=== PATIENT | male | born 1960 | race Caucasian/White ===

== ENCOUNTER 2018-02-21 11:07 | Day surgery (SDC) | payer OTHER ==
[2018-02-17 13:07] VITALS: BMI 28.4
[~2018-02-21 11:07] MED LIST: LACTATED RINGERS 1,000 ML IV SCH; LIDOCAINE 1% 20 ML VIAL (10MG/ML) FOR IV START INTRADERMA PRN
[2018-02-21 11:56] VITALS: RESP 16; TEMP 97.7
[2018-02-21] MEDS ORDERED: LIDOCAINE 1% INJ 10MG/ML (20 ML MDV) ONE (12:32)
[2018-02-21] MEDS ORDERED: PROPOFOL 10 MG/ML 20 ML VIAL IV ONE (12:32)
--- NOTE | 2018-02-21 12:55 | P.PCN ---
Date of Procedure: 02/21/18 Procedure(s) Performed: Procedure: Total colonoscopy. Preoperative diagnosis: Screening for neoplasia. Postoperative diagnosis: Mild sigmoid diverticulosis, otherwise, exam to the cecum within normal limits. Preparation: HalfLytely prep. Sedation: Was provided by anesthesia. Brief clinical history: The patient is a 57-year-old male who is scheduled for this evaluation for screening for neoplasia. His last exam was more than 10 years ago.. The patient has no abdominal complaints, bleeding or anemia. Procedure: With the patient on his left lateral decubitus position and after informed consent and adequate sedation, the perianal area was inspected and it did not show any fissures or fistulas. There were no masses felt on digital rectal examination. The Olympus CFQ 160L video colonoscope was then inserted in the rectum in the usual fashion and advanced to the cecum. There was occasional small diverticular orifice seen scattered in the sigmoid but I saw no evidence of acute diverticulitis or strictures. The mucosa appeared healthy. No polyps or tumors were seen. I retroflexed the endoscope in the rectum before the endoscope was withdrawn. The patient tolerated the procedure well. Plan: The patient was reassured. Discussed dietary measures. He will follow up with you as planned and I recommended repeat exam in 10 years.
[2018-02-21 13:25] VITALS: BP 117/73; PULSE 53
== END 2018-02-21 13:40 | disposition home or self-care (01) ==
LOC: ORWHC2ENDO 11:07
DX: Z12.11 Encounter for screening for malignant neoplasm of colon (principal); K57.30 Diverticulosis of large intestine without perforation or abscess without bleeding; I10 Essential (primary) hypertension; E78.5 Hyperlipidemia, unspecified; Z79.899 Other long term (current) drug therapy
CPT/HCPCS: J2001; J2704; G0121

== ENCOUNTER 2019-03-27 08:28 | Emergency (ER) | payer OTHER ==
[2019-03-27] MEDS ORDERED: LIDOCAINE 1% INJ 10MG/ML (20 ML MDV) SQ ONE (09:17)
[2019-03-27] MEDS ORDERED: DIPH,PERTUS(ACELL)TETVAC-LF 0.5 ML VIAL IM ONE (09:18)
--- NOTE | 2019-03-27 10:08 | ED ---
Upper Extremity HPI - General Chief Complaint: Extremity Injury, Upper Stated Complaint: sliver left palm Time Seen by Provider: 03/27/19 09:03 Source: patient, RN notes reviewed, old records reviewed Mode of arrival: ambulatory Limitations: no limitations - History of Present Illness Initial Comments: It is a 58-year-old male who presents when is your permit today with a sliver in the left hand palm. Patient ports he was working with wood yesterday and a piece of wood went to his hand. Try to get it on this one out, but was unable to. Patient states that it seems very painful and he feels of those sliver is deep. He reports full range of motion noted. Patient reports TDAP needs uptdate. MD Complaint: Injury to:: hand - Related Data Home Medications Medication Instructions Recorded Confirmed Simvastatin [Zocor] 20 mg PO Q48H 02/17/18 03/27/19 amLODIPine [Norvasc] 5 mg PO Q48H 02/17/18 03/27/19 Allergies Allergy/AdvReac Type Severity Reaction Status Date / Time No Known Allergies Allergy Verified 03/27/19 09:30 Review of Systems ROS Statement: Those systems with pertinent positive or pertinent negative responses have been documented in the HPI. ROS Other: All systems not noted in ROS Statement are negative. Past Medical History Past Medical History: Hyperlipidemia, Hypertension History of Any Multi-Drug Resistant Organisms: None Reported Additional Past Surgical History / Comment(s): colonscopy Past Anesthesia/Blood Transfusion Reactions: No Reported Reaction Past Psychological History: No Psychological Hx Reported Smoking Status: Never smoker Past Alcohol Use History: None Reported Past Drug Use History: None Reported - Past Family History Father Family Medical History: Cancer General Exam - General Exam Comments Initial Comments: This is a 58 year old male, no distress. Limitations: no limitations General appearance: alert, in no apparent distress Head exam: Present: atraumatic, normocephalic, normal inspection Eye exam: Present: normal appearance, PERRL, EOMI. Absent: scleral icterus, conjunctival injection, periorbital swelling ENT exam: Present: normal exam, mucous membranes moist Neck exam: Present: normal inspection. Absent: tenderness, meningismus, lymphadenopathy Respiratory exam: Present: normal lung sounds bilaterally. Absent: respiratory distress, wheezes, rales, rhonchi, stridor Cardiovascular Exam: Present: regular rate, normal rhythm, normal heart sounds. Absent: systolic murmur, diastolic murmur, rubs, gallop, clicks GI/Abdominal exam: Present: soft, normal bowel sounds. Absent: distended, tenderness, guarding, rebound, rigid Extremities exam: Present: normal inspection, full ROM, normal capillary refill. Absent: tenderness, pedal edema, joint swelling, calf tenderness Left Forearm Wrist exam: Present: normal inspection, full ROM Hand Wrist exam: Present: normal inspection, full ROM, other (small callus and abrasion over palm from possible sliver between 2-3 metacarpal. ) Vascular: Present: normal capillary refill Back exam: Present: normal inspection Neurological exam: Present: alert, oriented X3, CN II-XII intact Psychiatric exam: Present: normal affect, normal mood Course Vital Signs 03/27/19 03/27/19 08:49 10:47 Temperature 98.2 F 98.7 F Pulse Rate 58 L 55 L Respiratory 16 18 Rate Blood Pressure 132/77 120/73 O2 Sat by Pulse 98 98 Oximetry Medical Decision Making - Medical Decision Making 58 year old male, complains of possible sliver in left palm after working with [employer]. Patient had hand anesthesized with lidocaine wheal and small incision made over callus over hands and small piece of sliver was removed. Discussed I believe the sliver is gone, but if patient continues to have pain patient can follow up with ortho. Disposition Clinical Impression: Foreign body of hand, left Disposition: HOME SELF-CARE Condition: Good Instructions (If sedation given, give patient instructions): Soft Tissue Foreign Body (ED) Additional Instructions: Patient advised close follow-up with primary care doctor. Return to emergency department if any alarming signs or symptoms occur. Is patient prescribed a controlled substance at d/c from ED?: No Referrals: Errol Allen III, MD [Primary Care Provider] - 1-2 days Stuart Velazquez DO [Medical Doctor] - 1-2 days Time of Disposition: 10:07
[2019-03-27 10:48] VITALS: BP 120/73; PULSE 55; RESP 18; TEMP 98.7
== END 2019-03-27 10:45 | disposition home or self-care (01) ==
LOC: EC 08:28
DX: S60.552A Superficial foreign body of left hand, initial encounter (principal); Z23 Encounter for immunization; E78.5 Hyperlipidemia, unspecified; I10 Essential (primary) hypertension; Z79.899 Other long term (current) drug therapy; W22.8XXA Striking against or struck by other objects, initial encounter
CPT/HCPCS: 90715; 99283; 10120; J2001

== ENCOUNTER 2023-10-24 13:30 | Emergency (ER) | payer BC, OTHER ==
--- NOTE | 2023-10-24 14:03 | ED ---
Upper Extremity HPI - General Source: patient, RN notes reviewed <Salma Cantu - Last Filed: 10/24/23 14:02> <Tee Sánchez - Last Filed: 10/24/23 15:14> - General Stated Complaint: L finger dislocation Time Seen by Provider: 10/24/23 14:02 - History of Present Illness Initial Comments: Patient is a 63-year-old male presented ER with chief complaint of left pinky injury. Patient states he slipped on ice and dislocated his left pinky. Patient denies any other injuries. (Salma Cantu) - Related Data Home Medications Medication Instructions Recorded Confirmed Simvastatin [Zocor] 20 mg PO Q48H 02/17/18 03/27/19 amLODIPine [Norvasc] 5 mg PO Q48H 02/17/18 03/27/19 Allergies Allergy/AdvReac Type Severity Reaction Status Date / Time No Known Allergies Allergy Verified 10/24/23 14:11 Review of Systems ROS Other: All systems not noted in ROS Statement are negative. <Salma Cantu - Last Filed: 10/24/23 14:02> ROS Other: All systems not noted in ROS Statement are negative. <Tee Sánchez - Last Filed: 10/24/23 15:14> ROS Statement: Those systems with pertinent positive or pertinent negative responses have been documented in the HPI. Past Medical History Past Medical History: Hyperlipidemia, Hypertension History of Any Multi-Drug Resistant Organisms: None Reported Additional Past Surgical History / Comment(s): colonscopy Past Anesthesia/Blood Transfusion Reactions: No Reported Reaction Past Psychological History: No Psychological Hx Reported Past Alcohol Use History: None Reported Past Drug Use History: None Reported - Past Family History Father Family Medical History: Cancer <Salma Cantu - Last Filed: 10/24/23 14:02> General Exam <Salma Cantu - Last Filed: 10/24/23 14:02> General appearance: alert, in no apparent distress Head exam: Present: atraumatic, normocephalic Eye exam: Present: normal appearance, PERRL Neck exam: Present: normal inspection. Absent: tenderness, meningismus Respiratory exam: Present: normal lung sounds bilaterally. Absent: respiratory distress, wheezes Cardiovascular Exam: Present: regular rate, normal rhythm GI/Abdominal exam: Present: soft. Absent: distended, tenderness, guarding Extremities exam: Present: other (Flexion deformity of the proximal interphalangeal joint left hand fifth digit) Neurological exam: Present: alert, oriented X3, CN II-XII intact <Tee Sánchez - Last Filed: 10/24/23 15:14> - General Exam Comments Initial Comments: Visual Physical Exam Vital signs reviewed General: Well-appearing, nontoxic, no acute distress. Head: Normocephalic, atraumatic Eyes: PERRLA, EOMI ENT: Airway patent Chest: Nonlabored breathing Skin: No visual rash, normal skin tone Neuro: Alert and oriented 3 Musculoskeletal: Left pinky was laterally displaced (Salma Cantu) Course Vital Signs 10/24/23 14:08 Temperature 98 F Pulse Rate 59 L Respiratory 16 Rate Blood Pressure 146/88 O2 Sat by Pulse 96 Oximetry Procedures - Orthopedic Joint Reduction Joint #1 Consent Obtained: verbal consent Side: left Joint Reduction Location: finger Technique Used: traction/counter-traction, direct manipulation Post-Reduction Neuro Exam: intact Post-Reduction Vascular Exam: intact Patient Tolerated Procedure: well <Tee Sánchez - Last Filed: 10/24/23 15:14> - Orthopedic Joint Reduction Joint #1 Additional Comments: Patient had compromised capillary refill prior to reduction, improved capillary refill after reduction (Tee Sánchez) Medical Decision Making <Salma Cantu - Last Filed: 10/24/23 14:02> <Tee Sánchez - Last Filed: 10/24/23 15:14> - Medical Decision Making I performed the quick note portion of the exam. Electronically signed by Salma Cantu PA-C (Salma Cantu) Was pt. sent in by a medical professional or institution ([facility], CAR [facility], urgent care, hospital, or jail...) When possible be specific @ -No Did you speak to anyone other than the patient for history (EMS, parent, family, police, friend...)? What history was obtained from this source @ -No Did you review nursing and triage notes (agree or disagree)? Why? @ -I reviewed and agree with nursing and triage notes Were old charts reviewed (outside hosp., previous admission, EMS record, old EKG, old radiological studies, urgent care reports/EKG's, jail records)? Report findings @ -No old charts were reviewed Differential Diagnosis (chest pain, altered mental status, abdominal pain women, abdominal pain men, vaginal bleeding, weakness, fever, dyspnea, syncope, headache, dizziness, GI bleed, back pain, seizure, CVA, palpatations, mental health, musculoskeletal)? @ -Finger fracture, finger dislocation EKG interpreted by me (3pts min.). @ -As above X-rays interpreted by me (1pt min.). @ -[X-ray shows dislocation at the proximal interphalangeal joint left fifth digit CT interpreted by me (1pt min.). @ -None done U/S interpreted by me (1pt. min.). @ -None done What testing was considered but not performed or refused? (CT, X-rays, U/S, labs)? Why? @ -None What meds were considered but not given or refused? Why? @ -None Did you discuss the management of the patient with other professionals (professionals i.e. , PA, CAR SERVICER, lab, RT, psych nurse, social welfare administrator, technician trainee, teacher, ground intelligence officer, complex case manager)? Give summary @ -No Was smoking cessation discussed for >3mins.? @ -No Was critical care preformed (if so, how long)? @ -No Were there social determinants of health that impacted care today? How? (Homelessness, low income, unemployed, alcoholism, drug addiction, transportation, low edu. Level, literacy, decrease access to med. care, [facility], rehab)? @ -No Was there de-escalation of care discussed even if they declined (Discuss DNR or withdrawal of care, Hospice)? DNR status @ -No What co-morbidities impacted this encounter? (DM, HTN, Smoking, COPD, CAD, Cancer, CVA, ARF, Chemo, Hep., AIDS, mental health diagnosis, sleep apnea, morbid obesity)? @ -None Was patient admitted / discharged? Hospital course, mention meds given and route, prescriptions, significant lab abnormalities, going to OR and other pertinent info. @ -[63-year-old male with dislocation of the PIP left fifth digit. This is reduced easily with direct manipulation. Capillary refill improved after reduction, patient placed in finger splint Undiagnosed new problem with uncertain prognosis? @ -No Drug Therapy requiring intensive monitoring for toxicity (Heparin, Nitro, Insulin, Cardizem)? @ -No Were any procedures done? @Yes, dislocation reduction Diagnosis/symptom? @ -[Finger dislocation Acute, or Chronic, or Acute on Chronic? @ -[acute Uncomplicated (without systemic symptoms) or Complicated (systemic symptoms)? @ -default Side effects of treatment? @ -No Exacerbation, Progression, or Severe Exacerbation? @ -No Poses a threat to life or bodily function? How? (Chest pain, [place], [place], pneumonia, PE, COPD, DKA, ARF, appy, cholecystitis, CVA, Diverticulitis, Homicidal, Suicidal, threat to staff... and all critical care pts) @ -No (Tee Sánchez) Disposition <Salma Cantu - Last Filed: 10/24/23 14:02> Is patient prescribed a controlled substance at d/c from ED?: No Time of Disposition: 15:14 <Tee Sánchez - Last Filed: 10/24/23 15:14> Clinical Impression: Dislocation, finger closed Disposition: HOME SELF-CARE Condition: Good Instructions (If sedation given, give patient instructions): Finger Dislocation (ED) Referrals: Edmond Fitzpatrick MD [Primary Care Provider] - 1-2 days
--- NOTE | 2023-10-24 14:46 | XR ---
EXAMINATION TYPE: XR hand complete 3 views LT DATE OF EXAM: 10/24/2023 Comparison: None Clinical History: 63-year-old male fifth finger pain and injury after fall Findings: There is exaggerated flexion deformity at the fifth IP joint. Patient's ring considerably limits visu alization on the lateral view. There seems to be some subluxation at the joint, possible dislocation. No displaced fracture seen. Impression: Fixed flexion deformity and suspected subluxation/dislocation at the fifth PIP joint. No displaced fr acture seen.
[2023-10-24 15:38] VITALS: BP 136/80; PULSE 68; RESP 18; TEMP 98
== END 2023-10-24 15:23 | disposition home or self-care (01) ==
LOC: EC 13:30
DX: S63.287A Dislocation of proximal interphalangeal joint of left little finger, initial encounter (principal); I10 Essential (primary) hypertension; E78.5 Hyperlipidemia, unspecified; Z79.899 Other long term (current) drug therapy; W00.0XXA Fall on same level due to ice and snow, initial encounter
CPT/HCPCS: 26770; 99283